=== PATIENT | female | born 1965 ===

== ENCOUNTER 2018-07-25 20:13 | Emergency (ER) | payer OTHER ==
[2018-07-25 21:05] VITALS: BP 148/85; PULSE 78; RESP 18; TEMP 98.6; O2SAT 99
--- NOTE | 2018-07-25 21:26 | ED PDOC ---
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 Patient reports seeing her PMD for this same complaint twice already for which he prescribed her Polymyxin/Neomycin ear drops on 07/23 that have provided no relief. She notes having an ENT appointment coming up on 08/09 (cannot recall name of doctor), but came in today due to the persistence of her symptoms including some liquid drainage from the ear. Otherwise, denies fever, throat pain, cough, shortness of breath, nausea, vomiting, headache, having similar symptoms in the past, or having a history of diabetes. PMD: Ronald Drummond Past Medical History Reviewed: Historical Data, Nursing Documentation, Vital Signs Vital Signs: Last Vital Signs Temp 98.6 F 07/25/18 21:02 Pulse 78 07/25/18 21:02 Resp 18 07/25/18 21:02 BP 148/85 07/25/18 21:02 Pulse Ox 99 07/25/18 21:02 - Medical History PMH: No Chronic Diseases - Surgical History Surgical History: No Surg Hx - Family History Family History: States: Unknown Family Hx - Social History Current smoker - smoking cessation education provided: No - Home Medications Home Medications: Ambulatory Orders Medication Instructions Recorded Ciprofloxacin/Dexamethasone 4 drop BID #1 bottle 07/25/18 [Ciprodex Otic] Naproxen 500 mg PO BID PRN #20 tab 07/25/18 - Allergies Allergies/Adverse Reactions: Allergies Allergy/AdvReac Type Severity Reaction Status Date / Time No Known Allergies Allergy Verified 07/25/18 21:02 Review of Systems ROS Statement: Except As Marked, All Systems Reviewed And Found Negative Constitutional: Negative for: Fever ENT: Positive for: Ear Pain (left with associated decreased hearing), Ear Discharge (liquid drainage from left ear). Negative for: Throat Pain Respiratory: Negative for: Cough, Shortness of Breath Gastrointestinal: Negative for: Nausea, Vomiting Neurological: Negative for: Headache Physical Exam - Reviewed Nursing Documentation Reviewed: Yes Vital Signs Reviewed: Yes - Physical Exam Comments: GENERAL APPEARANCE: Patient is awake, alert, oriented x 3, in no acute distress. Resting comfortably. SKIN: Warm, dry; (-) cyanosis. EENMT: Left Canal: (+) erythema, (+) exudate, (+) edema with pain on tragus movement. Left TM: (-)bulging and (-) erythema, (-)effusion, (-) perforation, (- ) vesicles. Right ear canal and TM unremarkable. (-) pre or post-auricular cellulitis bilaterally. Hearing intact. Mastoid: nontender. Frontal / maxillary sinuses : (-) tenderness. (-) TMJ tenderness. Pharynx: Clear, uvula midline (- ) erythema, (-) exudate. Airway patent: (-) stridor. NECK: Supple, FROM (-) stiffness, (-) tenderness, (-) lymphadenopathy. LUNGS: clear to auscultation bilaterally (-) rales (-) wheezing, (-) rhonchi. Respirations even and nonlabored. CARDIAC: RRR - ECG O2 Sat by Pulse Oximetry: 99 (RA) Pulse Ox Interpretation: Normal Medical Decision Making Medical Decision Making: Initial Impression: otitis externa of left ear Time: 2099 Initial Plan: --Ibuprofen 800mg PO --Accucheck --Re-evaluation Accucheck: 101 2140 On re-evaluation, patient reports improvement of symptoms. On exam, patient remains AAOx3, in no acute distress. Vitals stable. Lab/Diagnostic results d/w the patient in great detail. Diagnosis of otitis externa and otalgia of left ear d/w the patient. Based on history, exam and diagnostic results, plan will be for outpatient follow up with ENT. Patient instructed to follow-up with pmd / referral provided / the clinic in 1- 2 days without fail. Advised to take medication as prescribed. Return to the emergency room at any time for any new or worsening symptoms. Patient states she fully agrees with and understands discharge instructions. States that she agrees with the plan and disposition. Verbalized and repeated discharge instructions and plan. I have given the patient opportunity to ask any additional questions. Scribe Attestation: Documented by Violetta Grajeda, acting as a scribe for Shalonda Castro PA-C. Provider Scribe Attestation: All medical record entries made by the Scribe were at my direction and personally dictated by me. I have reviewed the chart and agree that the record accurately reflects my personal performance of the history, physical exam, medical decision making, and the department course for this patient. I have also personally directed, reviewed, and agree with the discharge instructions and disposition. Disposition - Clinical Impression Clinical Impression: Left ear pain, Otitis externa - Patient ED Disposition Is Patient to be Admitted: No Counseled Patient/Family Regarding: Studies Performed, Diagnosis, Need For Followup, Rx Given - Disposition Referrals: Vin Mortensen MD [Staff Provider] - Ronald Drummond MD [Medical Doctor] - Disposition: Routine/Home Disposition Time: 21:40 Condition: STABLE Additional Instructions: La atencin mdica de emergencia que recibi hoy se dirigi a amberly sntomas agudos. Si le recetaron algn medicamento, llnelo y tmelo segn las indicaciones. Los sntomas pueden tardar varios mathew en resolverse. Regrese al Departamento de Emergencias si amberly sntomas empeoran, no mejoran o si tiene otros problemas. Comunquese con monsalve mdico dentro de 2 mathew para jung nueva evaluacin y oscar un seguimiento o llame a brien de los mdicos / clnicas a los que bello sido referido y que figuran en el formulario de Informacin de visita al paciente que se incluye en monsalve paquete de jose daniel. Lleve todos los documentos que recibi al momento del jose daniel junto con los medicamentos que est tomando para monsalve visita de seguimiento. Nuestro tratamiento no puede reemplazar la atencin mdica continua por parte de un proveedor de atencin primaria (PCP) fuera del departamento de emergencias. Prescriptions: Ciprofloxacin/Dexamethasone [Ciprodex Otic] 4 drop BID #1 bottle Naproxen 500 mg PO BID PRN #20 tab PRN Reason: Pain, Moderate (4-7) Instructions: Outer Ear Infection Forms: [facility] (Congolese) Print Language: IRISH - POA Present On Arrival: None
== END 2018-07-25 23:03 | disposition home or self-care (01) ==
LOC: H.ER 20:13
DX: H60.92 Unspecified otitis externa, left ear (principal)